=== PATIENT | male | born 1960 | race Caucasian/White ===

== ENCOUNTER → 2019-07-27 | Day surgery (SDC) | payer OTHER ==
[2019-07-24 10:59] VITALS: BMI 28.7
[~2019-07-27] MED LIST: GLYCOPYRROLATE 0.2 MG/ML 2 ML VIAL ONE; LIDOCAINE 1% 20 ML VIAL (10MG/ML) FOR IV START INTRADERMA ONE; LIDOCAINE 1% INJ 10MG/ML (20 ML MDV) ONE; PROPOFOL 10 MG/ML 20 ML VIAL IV ONE; ePHEDrine SULFATE/0.9% NACL/PF 50 MG/5 ML SYRINGE IV ONE
[2019-07-27 08:47] VITALS: TEMP 98
[2019-07-27] MEDS: LACTATED RINGERS 1,000 ML IV SCH ×2 (08:49→10:20)
--- NOTE | 2019-07-27 09:58 | P.PCN ---
Date of Procedure: 07/27/19 Description of Procedure: BRIEF HISTORY: Patient is a 59-year-old pleasant male scheduled for an elective colonoscopy as a part of surveillance after having testing with positive Cologard as well as change in bowel habits. Patient denies any blood per rectum, nausea, vomiting, constipation or diarrhea. No family history of colon cancer. No prior episodes of colonoscopy. PROCEDURE PERFORMED: Colonoscopy with polypectomy. PREOPERATIVE DIAGNOSIS: Change in bowel habits, positive Cologard, no prior colonoscopy. ESTIMATED BLOOD LOSS: Minimal. IV sedation per Anesthesia. PROCEDURE: After informed consent was obtained, the patient, was brought into the endoscopy unit. IV sedation was administered by Anesthesia under continuous monitoring. Digital rectal examination was normal. Initially the Olympus CF-190 flexible video colonoscope was then inserted in the rectum, gradually advanced into the cecum without any difficulty. Careful examination was performed as the scope was gradually being withdrawn. Ileocecal valve and the appendiceal orifice were visualized and appeared normal. Prep was excellent. Mucosa of the cecum, ascending colon, transverse colon, descending colon, sigmoid colon, and rectum appeared normal. Diminutive ascending colon polyp measuring 2 mm removed with cold forcep polypectomy. Diminutive splenic flexure polyp measuring 2 mm removed with cold forcep polypectomy. Sessile descending colon polyp measuring 4 mm removed with cold snare polypectomy. 2 sigmoid polyps measuring 4 and 5 mm removed with cold snare polypectomy. 2 rectosigmoid polyps measuring 5 and 6 mm removed with cold snare polypectomy. Retroflexion was performed in the rectum and no lesions were seen. The patient tolerated the procedure well. IMPRESSION: Normal-appearing colon from rectum to cecum. 7 small polyps measuring from 2 mm to 6 mm in size removed (please see body of report for locations and) RECOMMENDATIONS: Findings of this examination were discussed with the patient and his girlfriend. Okay to resume diet. Await pathology from polypectomy. Recommend repeat colonoscopy in 3 years and in pathology from polypectomy.
[2019-07-27 10:01] VITALS: RESP 18
[2019-07-27 13:36] VITALS: BP 139/82; PULSE 62
--- NOTE | 2019-07-27 13:39 | P.CRDCN ---
History of Present Illness History of present illness: This is a pleasant 59-year-old male past medical history significant for hypertension, heart murmur and former nicotine dependence. He states he underwent cardiac catheterization at 1-years-old for unknown reason. He thinks it has something to do with his valve. He has never had surgery for his valve and does not follow with a drug department worker for any reason. We have been asked to see him in consultation secondary to an arrhythmia noted during a colonscopy. He was brought in today electively by Dr. Farr secondary to positive cologard screening. His colonoscopy was unremarkable. During the procedure near the end the ENT NURSE noted his heart rate went up to 180 and sustained this for approximately 90 seconds. Unfortunately, this is not captured on telemetry tracings. The patient is seen and examined sitting up in bed in no acute distress. He denies feeling any palpitations, chest pain, shortness of breath or dizziness. 2 serial EKGs reveal sinus mechanism with right bundle branch block pattern. No arrhythmia or ectopy noted. Blood pressure 137/81 heart rate 59 afebrile maintaining oxygen saturation on room air. Current daily cardiac medications include Toprol 50 mg daily and losartan 50 mg twice a day. The patient states he follows regularly with her primary care physician and does have regular echocardiograms done as an outpatient. At the time of my exam: CONSTITUTIONAL: Denies fever. Denies chills. EYES: Denies blurred vision. Denies vision changes. Denies eye pain. EARS, NOSE, MOUTH & THROAT: Denies headache. Denies sore throat. Denies ear pain. CARDIOVASCULAR: Denies chest pain. Denies shortness of breath. Denies orthopnea. Denies PND. Denies palpitations. RESPIRATORY: Denies cough. GASTROINTESTINAL: Denies abdominal pain. Denies diarrhea. Denies constipation. Denies nausea. Denies vomiting. MUSCULOSKELETAL: Denies myalgias. INTEGUMENTARY: Denies pruitis. Denies rash. NEUROLOGIC: Denies numbness. Denies tingling. Denies weakness. PSYCHIATRIC: Denies anxiety. Denies depression. ENDOCRINE: Denies fatigue. Denies weight change. Denies polydipsia. Denies polyurina. GENITOURINARY: Denies burning, hematuria or urgency with micturation. HEMATOLOGIC: Denies history of anemia. Denies bleeding. GENERAL: This is a 59-year-old male in no apparent distress at the time of my examination. HEENT: Head is atraumatic, normocephalic. Pupils are equal, round. Sclerae anicteric. Conjunctivae are clear. Mucous membranes of the mouth are moist. Neck is supple. There is no jugular venous distention. No carotid bruit is heard. LUNGS: Clear to auscultation no wheezes, rales or rhonchi. No chest wall tenderness is noted on palpation or with deep breathing. HEART: Regular rate and rhythm with significant systolic ejection murmur at all listening points, no rubs or gallops. S1 and S2 heard. ABDOMEN: Soft, nontender. Bowel sounds are heard. No organomegaly noted. EXTREMITIES: No evidence of peripheral edema and no calf tenderness noted. VASCULAR: Radial and dorsalis pedis pulses palpated, no evidence of clubbing. NEUROLOGIC: Patient is awake, alert and oriented x3. ASSESSMENT Tachycardia noted during colonoscopy, no telemetry tracings available for review. Systolic ejection murmur suggestive of significant valvular disease, likely aortic stenosis based on auscultation Hypertension PLAN Recommend echocardiogram to assess cardiac structure and function however the patient is adamantly declining. He states under no circumstances will he undergo any sort of valvular repair. He is not interested in a cardiac workup at this time. Explained to him the risks if in fact this was a significant arrhythmia and he continues to decline. He does have family at the bedside. Clinically he is hemodynamically stable with no symptoms of angina or shortness of breath. Advised him to follow-up with his primary care physician and a drug department worker upon discharge. Thank you kindly for this consultation. Nurse Practitioner note has been reviewed, I agree with a documented findings and plan of care. Patient was seen and examined. 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 History of Any Multi-Drug Resistant Organisms: None Reported Past Surgical History: Heart Catheterization Additional Past Surgical History / Comment(s): HEART CATHERIZATION AT AGE 1 Past Anesthesia/Blood Transfusion Reactions: No Reported Reaction Smoking Status: Former smoker - Past Family History Mother Family Medical History: Cancer Medications and Allergies Home Medications Medication Instructions Recorded Confirmed Type Losartan Potassium 50 mg PO BID 07/24/19 07/27/19 History Metoprolol Succinate (ER) [Toprol 50 mg PO HS 07/24/19 07/27/19 History Xl] Allergies Allergy/AdvReac Type Severity Reaction Status Date / Time No Known Allergies Allergy Verified 07/27/19 08:46 Physical Exam Vitals: Vital Signs Temp Pulse Resp BP Pulse Ox 07/27/19 13:00 59 L 18 137/81 100 07/27/19 12:30 59 L 18 132/79 100 07/27/19 11:53 69 18 150/93 100 07/27/19 11:33 56 L 18 100 07/27/19 11:06 62 18 152/88 98 07/27/19 10:51 59 L 18 138/86 99 07/27/19 10:19 72 18 124/78 98 07/27/19 09:56 85 18 111/72 98 07/27/19 08:35 98.0 F 68 16 150/93 99 Intake and Output 07/26/19 07/27/19 07/27/19 22:59 06:59 14:59 Intake Total 1000 Balance 1000 Intake: IV 1000 Results Current Medications Generic Name Dose Route Start Last Admin Trade Name Joshuaq PRN Reason Stop Dose Admin Lactated Ringer's 1,000 mls @ 20 mls/hr 07/27/19 05:41 07/27/19 10:20 Lactated Ringers IV 0 mls .Q24H KIMANI Administration Intake and Output 07/26/19 07/27/19 07/27/19 22:59 06:59 14:59 Intake Total 1000 Balance 1000 Intake: IV 1000
== END ==
LOC: ORWHC2ENDO 08:10
PROVIDERS: ATTEND Internal Medicine
DX: D12.2 Benign neoplasm of ascending colon (principal); D12.3 Benign neoplasm of transverse colon; D12.5 Benign neoplasm of sigmoid colon; K62.1 Rectal polyp; K63.5 Polyp of colon; I10 Essential (primary) hypertension; Z87.891 Personal history of nicotine dependence; R00.0 Tachycardia, unspecified; R01.1 Cardiac murmur, unspecified; Z79.899 Other long term (current) drug therapy
CPT/HCPCS: 93005; 88305; 45380; 45385; J2001; J2704